=== PATIENT | female | born 1945 | race Caucasian/White ===

== ENCOUNTER 2022-07-14 09:28 | Emergency (ER) | payer MEDICARE ==
[~2022-07-14] VITALS: Ht 162.6 cm; Wt 65.9 kg
[2022-07-14 11:44] VITALS: BP 135/82; PULSE 62
== END 2022-07-14 11:44 | disposition home or self-care (01) ==
LOC: COL.ER 09:28
DX: R04.0 Epistaxis (principal); Z79.02 Long term (current) use of antithrombotics/antiplatelets; Z79.82 Long term (current) use of aspirin; Z28.310 Unvaccinated for COVID-19